=== PATIENT | male | born 1980 | race Caucasian/White ===

== ENCOUNTER → 2018-12-17 | Outpatient (CLI) | payer BC ==
[~2018-12-17] MED LIST: IBU-8800 MG PO
[2018-12-17 09:34] LABS: HEMATOCRIT 47.3 % (42.0-52.0); HEMOGLOBIN 15.5 g/dl (14.0-18.0); MEAN CELL VOLUME 89.2 fl (80.0-94.0); MEAN CORPUSCULAR HGB 29.2 pg (27.0-31.0); MEAN CORPUSCULAR HGB CONC 32.8 g/dl (33.0-37.0); MEAN PLATELET VOLUME 10.1 fl (9.6-12.3); RED BLOOD COUNT 5.3 10*6/uL (4.50-5.90); RED CELL DISTRI WIDTH 13.6 % (0-14.5); WHITE BLOOD COUNT 7.5 10*3/uL (4.8-10.8)
[2018-12-17 10:07] LABS: ALBUMIN 3.6 gm/dl (3.1-4.5); ALKALINE PHOSPHATASE 80 U/L (45-117); BUN 14 mg/dl (7-24); CHLORIDE 104 mmol/L (98-107); CHOLESTEROL 157 mg/dL (<200); CREATININE 1.18 mg/dL (0.70-1.30); HDL CHOLESTEROL 31 mg/dl (40-60); LDL CHOLESTEROL 75 mg/dL (9-159); POTASSIUM 3.5 mmol/L (3.5-5.1); SGOT/AST 57 IU/L (3-35); SGPT/ALT 113 U/L (12-78); SODIUM 137 mmol/L (136-145); TOTAL PROTEIN 7.5 gm/dL (6.4-8.2); TRIGLYCERIDES 256 mg/dl (<150); VLDL CHOLESTEROL 51 mg/dL (6-40)
== END | disposition home or self-care (01) ==
LOC: LAB 08:34
PROVIDERS: Physician Assistant
DX: F32.9 Major depressive disorder, single episode, unspecified (principal); G47.39 Other sleep apnea; M10.072 Idiopathic gout, left ankle and foot; I10 Essential (primary) hypertension

== ENCOUNTER → 2019-01-12 | Outpatient (CLI) | payer BC | END | disposition home or self-care (01) | LOC: US 10:00 | DX: K76.0 Fatty (change of) liver, not elsewhere classified (principal); I10 Essential (primary) hypertension; F32.9 Major depressive disorder, single episode, unspecified; M10.072 Idiopathic gout, left ankle and foot; R74.8 Abnormal levels of other serum enzymes ==

== ENCOUNTER → 2019-01-19 | Outpatient (CLI) | payer BC | END | disposition home or self-care (01) | LOC: LAB 18:22 | PROVIDERS: Internal Medicine | DX: R79.89 Other specified abnormal findings of blood chemistry (principal) ==

== ENCOUNTER → 2021-06-24 | Outpatient (CLI) | payer BC | END | disposition home or self-care (01) | LOC: RAD 18:06 | PROVIDERS: ATTEND Physician Assistant | DX: M47.812 Spondylosis without myelopathy or radiculopathy, cervical region (principal); M48.02 Spinal stenosis, cervical region; M47.814 Spondylosis without myelopathy or radiculopathy, thoracic region ==